=== PATIENT | female | born 1995 | race Caucasian/White ===

== ENCOUNTER → 2018-01-16 | Outpatient (CLI) | payer OTHER, SELFPAY ==
[2018-01-16 19:43] LABS: ESTIMATED AVERAGE GLUCOSE 108 MG/DL (60-110); HEMOGLOBIN A1c 5.4 %
[2018-01-16 19:46] LABS: ALBUMIN 3.6 GM/DL (3.2-5.2); ALBUMIN/GLOBULIN RATIO 0.86 (1.00-1.93); ALKALINE PHOSPHATASE 78 U/L (45-117); ALT/SGPT 33 U/L (12-78); ANION GAP 7 MEQ/L (8-16); AST/SGOT 17 U/L (7-37); BILIRUBIN,TOTAL 0.2 MG/DL (0.2-1.0); BLOOD UREA NITROGEN 12 MG/DL (7-18); CALCIUM LEVEL 8.4 MG/DL (8.5-10.1); CARBON DIOXIDE LEVEL 24 MEQ/L (21-32); CHLORIDE LEVEL 111 MEQ/L (98-107); CREATININE FOR GFR 0.65 MG/DL (0.55-1.30); GLUCOSE, FASTING 73 MG/DL (70-100); SODIUM LEVEL 142 MEQ/L (136-145); TOTAL PROTEIN 7.8 GM/DL (6.4-8.2)
[2018-01-16 19:49] LABS: BASO % 0.4 % (0.0-1.0); EOS # 0.1 10^3/uL (0.0-0.50); EOS % 0.8 % (0.0-3.0); HEMOGLOBIN 12.1 g/dl (12.0-16.0); IMMATURE GRANULOCYTE % 0.2 % (0-3.0); LYMPH # 2.7 10^3/uL (1.5-6.5); LYMPH % 31.9 % (24.0-44.0); MEAN CORPUSCULAR HEMOGLOBIN 28.5 pg (27.0-33.0); MEAN CORPUSCULAR HGB CONC 32.7 g/dl (32.0-36.5); MEAN CORPUSCULAR VOLUME 87.1 fl (80.0-96.0); MONO # 0.5 10^3/uL (0.0-0.8); MONO % 6.1 % (0.0-5.0); NEUTROPHILS # 5.2 10^3/uL (1.8-7.7); NEUTROPHILS % 60.6 % (36.0-66.0); PLATELET COUNT, AUTOMATED 317 10^3/uL (150-450); RED BLOOD COUNT 4.25 10^6/uL (4.00-5.40); RED CELL DISTRIBUTION WIDTH 12.7 % (11.5-14.5); WHITE BLOOD COUNT 8.5 10^3/uL (4.0-10.0)
[2018-01-17 09:28] LABS: TOTAL 25(OH) VITAMIN D 21.8 NG/ML (30.0-100.0)
== END ==
LOC: M LRY 14:55
DX: Z00.00 Encounter for general adult medical examination without abnormal findings (principal)
CPT/HCPCS: 84443

== ENCOUNTER → 2018-04-13 | Outpatient (CLI) | payer OTHER ==
[2018-04-13 21:11] LABS: COMPLEMENT C3 180 MG/DL (90-180); IMMUNOGLOBULIN E 61.6 IU/ML (<100); IMMUNOGLOBULIN G 1530 MG/DL (681-1648); IMMUNOGLOBULIN M 79.3 MG/DL (40-230)
[2018-04-17 08:11] LABS: D001-IgE D pteronyssinus <0.10 kU/L (Class 0); E001-IgE Cat Epith/Dander < 0.10 kU/L (Class 0); E005-IgE Dog Dander < 0.10 kU/L (Class 0); F002-IgE Milk < 0.10 kU/L (Class 0); F004-IgE Wheat < 0.10 kU/L (Class 0); F013-IgE Peanut < 0.10 kU/L (Class 0); F014-IgE Soybean < 0.10 kU/L (Class 0); F026-IgE Pork < 0.10 kU/L (Class 0); F027-IgE Beef < 0.10 kU/L (Class 0); F245-IgE Egg, Whole < 0.10 kU/L (Class 0); F279-IGE CHILI PEPPER <0.10 kU/L (Class 0); F280-IGE BLACK PEPPER <0.10 kU/L (Class 0); FX02-IgE Food Mix (Sea Foods) Negative (.); G002-IgE Bermuda Grass < 0.10 kU/L (Class 0); G008-IgE Kentucky Bluegrass < 0.10 kU/L (Class 0); I002-IgE HORNET, WHITE FACE <0.10 kU/L (Class 0); I003-IgE YELLOW JACKET <0.10 kU/L (Class 0); I004-IgE PAPER WASP <0.10 kU/L (Class 0); I005-IgE HORNET, YELLOW <0.10 kU/L (Class 0); I205-IgE BUMBLEBEE <0.10 kU/L (Class 0); M001-IgE Penicillium chrysogen < 0.10 kU/L (Class 0); M002 IgE Cladosporium herbaru < 0.10 kU/L (Class 0); M003 IgE Aspergillus fumigatu < 0.10 kU/L (Class 0); M006-IgE Alternaria alternata < 0.10 kU/L (Class 0); T001-IgE Maple/Box Elder < 0.10 kU/L (Class 0); T003-IgE Common Silver Birch < 0.10 kU/L (Class 0); T006-IgE Cedar, Mountain < 0.10 kU/L (Class 0); T007-IgE Oak, White < 0.10 kU/L (Class 0); T008-IgE Elm, American < 0.10 kU/L (Class 0); T015-IgE Ash, White < 0.10 kU/L (Class 0); T041-IgE Hickory, White 0.17 kU/L (Class 0/I); T070-IgE White Mulberry < 0.10 kU/L (Class 0); W001-IgE Ragweed, Short < 0.10 kU/L (Class 0); W009-IgE Plantain, English < 0.10 kU/L (Class 0); W014-IgE Pigweed, Rough < 0.10 kU/L (Class 0); W018-IgE Sheep Sorrel < 0.10 kU/L (Class 0)
[2018-04-17 08:11] LABS: ALPHA 1 ANTITRYPSIN 213 mg/dL (90-200)
== END ==
LOC: M LRY 15:51
DX: J30.1 Allergic rhinitis due to pollen (principal); J32.0 Chronic maxillary sinusitis; R05 Cough; H10.45 Other chronic allergic conjunctivitis

== ENCOUNTER → 2019-01-30 | Outpatient (CLI) | payer OTHER ==
--- NOTE | 2019-01-30 15:43 | REP ---
RIGHT FOOT COMPLETE: 01/30/2019. Clinical history: Trauma to the right foot, states prior foot and ankle fracture. Findings: There are no prior studies. Four views are provided. The talus and calcaneus show no focal lesion. Subtalar joints intact. Tarsal bones and their articulations are preserved. Metatarsals and phalanges show no fracture or acute bony finding. I see no destructive bone lesion, foreign body or heel spurs. Impression: 1. Negative right foot series for fracture, avulsion, focal bone lesion or visible old fracture. No foreign body, erosive change or other acute bony finding. Electronically Signed by Vlad Boyle MD 01/30/2019 07:58 P
== END ==
LOC: M LRY 14:01
PROVIDERS: ATTEND Nurse Practitioner Family
DX: S99.921A Unspecified injury of right foot, initial encounter (principal); Y92.9 Unspecified place or not applicable; Y93.9 Activity, unspecified; Y99.9 Unspecified external cause status; X58.XXXA Exposure to other specified factors, initial encounter

== ENCOUNTER → 2019-08-02 | Outpatient (CLI) | payer OTHER ==
--- NOTE | 2019-08-02 15:09 | REP ---
Right knee series: Five views. History: Injury of the right knee. Findings: Five views of the right knee demonstrate normal bones, joints, and soft tissues. There is no evidence of fracture, subluxation or joint effusion. Impression: Negative right knee radiographs. Electronically Signed by Hitesh Esqueda MD 08/02/2019 03:00 P
== END ==
LOC: M LRY 14:32
PROVIDERS: ATTEND Nurse Practitioner Family
DX: S89.91XA Unspecified injury of right lower leg, initial encounter (principal); X58.XXXA Exposure to other specified factors, initial encounter; Y92.9 Unspecified place or not applicable; Y93.9 Activity, unspecified; Y99.9 Unspecified external cause status
CPT/HCPCS: 73564; G0463

== ENCOUNTER → 2019-12-23 | Outpatient (CLI) | payer OTHER ==
--- NOTE | 2019-12-23 15:40 | REP ---
Thoracic spine three views for fall: There are no comparisons. Vertebral body heights, interspacing alignment are normal. There is mild scoliosis convex left at the thoracolumbar junction and right in the lumbar spine. The pedicles are unremarkable. Impression: Mild scoliosis, otherwise negative thoracic spine. Electronically Signed by Josias Mendoza MD 12/23/2019 03:32 P
== END ==
LOC: M LRY 15:11
PROVIDERS: ATTEND Physician Assistant
DX: S24.109A Unspecified injury at unspecified level of thoracic spinal cord, initial encounter (principal); W18.30XA Fall on same level, unspecified, initial encounter; Y92.009 Unspecified place in unspecified non-institutional (private) residence as the place of occurrence of the external cause
CPT/HCPCS: 72072; G0463

== ENCOUNTER → 2020-04-12 | Outpatient (REF) | payer OTHER ==
[~2020-04-12] MED LIST: CLAR5TAB11 PO; CLEO300C2 PO; OMEP10CASR PO; SPRI28TA PO; WELL100T2 PO
== END ==
LOC: M SFHCLERA 09:30
PROVIDERS: ATTEND Nurse Practitioner Family
DX: J02.9 Acute pharyngitis, unspecified (principal)

== ENCOUNTER 2020-04-16 05:12 | Emergency (ER) | payer OTHER, SELFPAY ==
[~2020-04-16] VITALS: Ht 160 cm; Wt 115.1 kg
[2020-04-16 05:19] VITALS: BP 142/86
[2020-04-16] MEDS ORDERED: OMEP10CASR PO (05:19)
[2020-04-16] MEDS ORDERED: CLAR5TAB11 PO (05:19)
[2020-04-16] MEDS ORDERED: WELL100T2 PO (05:19)
[2020-04-16] MEDS ORDERED: SPRI28TA PO (05:19)
[2020-04-16] MEDS ORDERED: CLINDAMYCIN 150MG CAPSULE PO ONE (06:15)
[2020-04-16] MEDS ORDERED: CLEO300C2 PO (06:16)
== END 2020-04-16 06:28 | disposition home or self-care (01) ==
LOC: M ED 05:12
DX: J02.0 Streptococcal pharyngitis (principal); Z88.0 Allergy status to penicillin; Z91.030 Bee allergy status; Z91.018 Allergy to other foods

== ENCOUNTER 2020-11-04 22:49 | Emergency (ER) | payer SELFPAY ==
[~2020-11-04] VITALS: Ht 162.6 cm; Wt 120.7 kg
[2020-11-04] MEDS ORDERED: BUPR150T3 (22:59)
[2020-11-04] MEDS ORDERED: OMEP-218 (22:59)
[2020-11-04 23:34] LABS: BASO # 0.1 10^3/uL (0.0-0.2); BASO % 0.5 % (0.0-1.0); EOS # 0.1 10^3/uL (0.0-0.5); EOS % 0.6 % (0.0-3.0); HEMATOCRIT 36.8 % (36.0-47.0); LYMPH # 2.4 10^3/uL (1.5-5.0); LYMPH % 19.1 % (24.0-44.0); MEAN CORPUSCULAR HEMOGLOBIN 24.8 pg (27.0-33.0); MEAN CORPUSCULAR HGB CONC 29.9 g/dl (32.0-36.5); MEAN CORPUSCULAR VOLUME 83.1 fl (80.0-96.0); MONO # 0.6 10^3/uL (0.0-0.8); MONO % 4.5 % (0.0-5.0); NEUTROPHILS # 9.5 10^3/uL (1.5-8.5); NEUTROPHILS % 74.8 % (36.0-66.0); PLATELET COUNT, AUTOMATED 406 10^3/uL (150-450); RED BLOOD COUNT 4.43 10^6/uL (4.00-5.40); WHITE BLOOD COUNT 12.7 10^3/uL (4.0-10.0)
[2020-11-04] MEDS ORDERED: MORPHINE 4 MG/ML 1ML VIAL/SYRINGE (J2270) IV ONE (23:45)
[2020-11-04] MEDS ORDERED: NS 1,000 ML IV ONE (23:45)
[2020-11-04] MEDS ORDERED: ONDANSETRON 4MG/2ML VIAL IV ONE (23:45)
[2020-11-05 00:04] LABS: ALBUMIN 3.3 GM/DL (3.2-5.2); ALT/SGPT 61 U/L (12-78); BILIRUBIN,DIRECT < 0.1 MG/DL (0.0-0.2); BILIRUBIN,TOTAL 0.2 MG/DL (0.2-1.0); BLOOD UREA NITROGEN 14 MG/DL (7-18); CALCIUM LEVEL 8.9 MG/DL (8.5-10.1); CARBON DIOXIDE LEVEL 25 MEQ/L (21-32); CHLORIDE LEVEL 107 MEQ/L (98-107); CREATININE FOR GFR 0.95 MG/DL (0.55-1.30); GLOMERULAR FILTRATION RATE > 60.0 (>60); GLUCOSE, FASTING 113 MG/DL (70-100); HCG, SERUM QUANTITATIVE < 1.0 MIU/ML; LIPASE 150 U/L (73-393); POTASSIUM SERUM 4.4 MEQ/L (3.5-5.1); SODIUM LEVEL 139 MEQ/L (136-145); TOTAL PROTEIN 7.7 GM/DL (6.4-8.2)
--- NOTE | 2020-11-05 00:57 | REPVR ---
PROCEDURE INFORMATION: Exam: US Retroperitoneal Limited, Kidneys Exam date and time: 11/05/2020 12:21 AM Age: 25 years old Clinical indication: Abdominal pain; Flank; Right upper quadrant (ruq); Additional info: Right flank pain TECHNIQUE: Imaging protocol: Real-time ultrasound of the retroperitoneum with image documentation. Examination was focused on the kidneys. COMPARISON: No relevant prior studies available. FINDINGS: Right kidney: The right kidney is normal in appearance and measures 9.7 cm in length. There is no renal cortical thinning. The renal cortical echogenicity is within normal limits. No renal lesion is seen. There is no hydronephrosis. No obvious stones are seen in the renal collecting system. Left kidney: The left kidney is normal in appearance and measures 11.3 cm in length. There is no renal cortical thinning. The renal cortical echogenicity is within normal limits. No renal lesion is seen. There is no hydronephrosis. No obvious stones are seen in the renal collecting system. Bladder: The urinary bladder was not fully distended at the time of the examination. Gallbladder: There is cholelithiasis. No gallbladder wall thickening or pericholecystic fluid is seen from the images obtained of the gallbladder. IMPRESSION: 1. Normal ultrasound of the kidneys. No hydronephrosis. 2. Cholelithiasis. Electronically signed by: Sabas Grady On 11/05/2020 00:56:45 AM
--- NOTE | 2020-11-05 01:37 | REPVR ---
PROCEDURE INFORMATION: Exam: XR Abdomen, 1 View Exam date and time: 11/04/2020 11:59 PM Age: 25 years old Clinical indication: Abdominal pain; Flank; Right; Additional info: Right flank pain TECHNIQUE: Imaging protocol: XR of the abdomen. Views: Frontal supine view of the abdomen. 1 View. COMPARISON: No relevant prior studies available. FINDINGS: Gastrointestinal tract: There is a moderate to large amount of stool in the ascending colon. No dilated loops of bowel are noted. Vasculature: There is a 4 mm calcification in the right side of the pelvis, which may represent a calculus in the urinary bladder or right distal ureter, or a phlebolith. 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 IMPRESSION: 1. 4 mm calcification in the right side of the pelvis, which may represent a calculus in the urinary bladder or right distal ureter, or a phlebolith. 2. Moderate to large amount of stool in the ascending colon. No radiographic evidence for a bowel obstruction. Electronically signed by: Sabas Grady On 11/05/2020 01:36:48 AM
[2020-11-05] MEDS ORDERED: NORCO, ANEXSIA 5/325MG TABLET (HYDROcodone/ACETAMINOPHEN) PO ONE (01:45)
[2020-11-05] MEDS ORDERED: FLAG500T PO (02:06)
[2020-11-05] MEDS ORDERED: ONDA4TAB6 PO (02:06)
[2020-11-05] MEDS ORDERED: CIPR-249 PO (02:06)
[2020-11-05] MEDS ORDERED: NORC1TAB7 PO (02:06)
[2020-11-05 02:21] VITALS: BP 127/57
== END 2020-11-05 02:26 | disposition home or self-care (01) ==
LOC: M ED 22:49
DX: K80.70 Calculus of gallbladder and bile duct without cholecystitis without obstruction (principal); J45.909 Unspecified asthma, uncomplicated; K21.9 Gastro-esophageal reflux disease without esophagitis; Z79.899 Other long term (current) drug therapy; Z79.3 Long term (current) use of hormonal contraceptives; Z88.0 Allergy status to penicillin; Z91.018 Allergy to other foods; Z91.030 Bee allergy status
CPT/HCPCS: 74018; 76775; 80048; 80076; 81001; 83690; 84702; 85025; 96361; 96374; 96375; 99284; J2270; J2405